=== PATIENT | male | born 1985 | race Hispanic/Latino ===

== ENCOUNTER 2017-12-15 01:28 | Emergency (ER) | payer SELFPAY ==
[2017-12-15 01:47] VITALS: BP 173/67; PULSE 84; RESP 18; TEMP 98.3; O2SAT 96
--- NOTE | 2017-12-15 02:40 | ED PDOC ---
HPI: Psych/Substance Abuse Time Seen by Provider: 12/15/17 02:06 Chief Complaint (Nursing): Alcohol Ingestion Chief Complaint (Provider): intoxicated ED Caveat: Intoxicated History Per: Patient History/Exam Limitations: intoxication (intoxicated but cooperative) Onset/Duration Of Symptoms: Hrs (3) Current Symptoms Are (Timing): Still Present Suicide/Self Injury Attempted (Context): None Ingestion Of Substance: alcohol Modifying Factor(s): Alcohol Associated Symptoms: denies: Anger, Anxiety, Agitation, Suicidal Thoughts, Suicidal Plan Past Medical History Vital Signs: Last Vital Signs Temp 98.3 F 12/15/17 01:39 Pulse 84 12/15/17 01:39 Resp 18 12/15/17 01:39 BP 173/67 H 12/15/17 01:39 Pulse Ox 96 12/15/17 01:39 - Family History Family History: States: Unknown Family Hx - Allergies Allergies/Adverse Reactions: Allergies Allergy/AdvReac Type Severity Reaction Status Date / Time No Known Allergies Allergy Verified 12/15/17 01:44 Review of Systems Review Of Systems: ROS cannot be obtained secondary to pt's inabilty to answer questions. Psych: Positive for: Other (intoxicated) Physical Exam - Reviewed Nursing Documentation Reviewed: Yes Vital Signs Reviewed: Yes - Physical Exam Appears: Positive for: Uncomfortable Head Exam: Positive for: ATRAUMATIC, NORMAL INSPECTION, NORMOCEPHALIC Neck: Positive for: Normal, Painless ROM, Supple Cardiovascular/Chest: Positive for: Regular Rate, Rhythm, Chest Non Tender. Negative for: Edema, Gallop, Murmur, Bradycardia, Tachycardia, Friction Rub Respiratory: Positive for: Normal Breath Sounds, Decreased Breath Sounds. Negative for: Accessory Muscle Use, Crackles, Stridor, Wheezing, Respiratory Distress Pulses-Carotid (L): 2+ Pulses-Carotid (R): 2+ Pulses-Radial (L): 2+ Pulses-Radial (R): 2+ Gastrointestinal/Abdominal: Positive for: Normal Exam, Bowel Sounds, Soft. Negative for: Tenderness - ECG O2 Sat by Pulse Oximetry: 96 Medical Decision Making Medical Decision Making: Pt arrived intoxicated and very cooperative; mood changed several hours into stay necessitating one to one; pt sleeping and awaiting clinical sobriety prior to discharge Disposition - Clinical Impression Clinical Impression: Alcohol abuse, Alcohol ingestion - Patient ED Disposition Is Patient to be Admitted: No Doctor Will See Patient In The: Office Counseled Patient/Family Regarding: Diagnosis, Need For Followup - Disposition Referrals: [facility] [Outside] Disposition: Routine/Home Disposition Time: 05:27 Condition: GOOD Instructions: Alcohol Abuse and Alcoholism (DC), Effects of Alcohol on Your Health Forms: [employer] (Macedonian) - POA Core Measure Indicators: Code Sepsis
== END 2017-12-15 06:31 | disposition home or self-care (01) ==
LOC: H.ER 01:28
DX: F10.10 Alcohol abuse, uncomplicated (principal)